=== PATIENT | male | born 1990 ===

== ENCOUNTER → 2019-10-08 | Outpatient (REF) | END | disposition home or self-care (01) | LOC: LB 17:07 | DX: U07.1 COVID-19 (principal) ==

== ENCOUNTER → 2019-10-16 | Outpatient (REF) | END | disposition home or self-care (01) | LOC: LB 16:21 | DX: U07.1 COVID-19 (principal) ==

== ENCOUNTER → 2019-10-20 | Outpatient (REF) | END | disposition home or self-care (01) | LOC: LB 16:46 | DX: U07.1 COVID-19 (principal) ==